=== PATIENT | female | born 1965 | race African-American/Black ===

== ENCOUNTER → 2023-09-23 09:29 | Outpatient (CLI) | payer OTHER, SELFPAY ==
--- NOTE | 2023-09-23 09:36 | DI.RAD.S_ITS ---
PROCEDURE: XR HAND RT 2V INDICATIONS: JOINT PAIN TECHNIQUE: 2 views of the hand(s) acquired. COMPARISON: None. FINDINGS: Bones: No fractures or dislocations. Carpal bones are normally aligned. No suspicious bony lesions. There is mild extension centered at the distal interphalangeal joint of the 3rd through 5th fingers. Soft tissues: No suspicious soft tissue calcifications. IMPRESSION: Right hand without acute fracture or dislocation. Nonspecific extension of the distal phalangeal joint at the 3rd, 4th and 5th fingers. Dictated by: Mikey Castillo M.D. on 09/23/2023 at 16:30 Approved by: Mikey Castillo M.D. on 09/23/2023 at 16:32
--- NOTE | 2023-09-23 09:37 | DI.RAD.S_ITS ---
PROCEDURE: XR HAND LT 2V INDICATIONS: JOINT PAIN TECHNIQUE: 3 views of the hand(s) acquired. COMPARISON: None. FINDINGS: Bones: No fractures or dislocations. Carpal bones are normally aligned. No suspicious bony lesions. There is mild extension at the distal interphalangeal joints of the 3rd through fingers. Soft tissues: No suspicious soft tissue calcifications. IMPRESSION: No acute bony abnormality. Non-specific mild extension centered at the distal interphalangeal joints of the 3rd, 4th, and 5th fingers. Dictated by: Mikey Castillo M.D. on 09/23/2023 at 16:54 Approved by: Mikey Castillo M.D. on 09/23/2023 at 17:07
== END ==
PROVIDERS: Referring Provider Internal Medicine Cardiovascular Disease; Visit Provider Internal Medicine Cardiovascular Disease
DX: M25.549 Pain in joints of unspecified hand (principal)
CPT/HCPCS: 73120